=== PATIENT | male | born 1990 | race Caucasian/White ===

== ENCOUNTER 2017-10-10 03:05 | Emergency (ER) | payer MEDICAID ==
[~2017-10-10 03:05] MED LIST: HYDR-4309 PO; PROM-110 PO
--- NOTE | 2017-10-10 03:15 | ER Report ---
History and Physical Time Seen By MD: 03:15 Hx. of Stated Complaint: COUGH, SOB, CAN'T SLEEP HPI/ROS CHIEF COMPLAINT: Harsh cough 3 days HISTORY OF PRESENT ILLNESS: 27-year-old male presents to the ER with difficulty sleeping secondary to severe cough. He has a bronchitic repetitive cough which causes coughing fits. He shouldn't notes a history of reactive airways disease and allergies. Patient notes recent URI symptoms. He's had no change in color of his sputum. He's had no fevers. He denies chest pain or leg swelling. Patient was seen several months back and diagnosed with influenza REVIEW OF SYSTEMS: Respiratory: As above Cardiovascular: No chest pain, no palpitations. Gastrointestinal: No vomiting, no abdominal pain. Musculoskeletal: No back pain. Allergies: Coded Allergies: No Known Drug Allergies (Unverified , 10/10/17) Home Meds Active Scripts Hydrocodone Bit/Acetaminophen (NORCO 5-325 TABLET) 1 Each Tablet, 1 EACH PO Q4H Y for pain or cough suppression, #12 TAB Prov:GANESH ANN DO 10/10/17 Prednisone (PREDNISONE) 20 Mg Tablet, 20 MG PO QDAY for reduce lung inflammation , #9 2 by mouth daily 3 days then 1 by mouth daily 3 days Prov:GANESH ANN DO 10/10/17 Discontinued Scripts Promethazine Hcl (PROMETHAZINE HCL) 25 Mg Tablet, 25 MG PO Q4H Y for NAUSEA/ VOMITING, #15 TAB Prov:GANESH ANN DO 04/04/16 Hydrocodone Bit/Acetaminophen (NORCO 5-325 TABLET) 1 Each Tablet, 1 EACH PO Q4H Y for pain or cough suppression, #15 TAB Prov:GANESH ANN DO 04/04/16 Reviewed Nurses Notes: Yes Old Medical Records Reviewed: Yes Hx Substance Use Disorder: No Hx Alcohol Use: No Constitutional Vital Sign - Last 24 Hours 10/10/17 10/10/17 10/10/17 10/10/17 03:05 03:11 03:11 03:20 Temp 99.1 Pulse ??? 68 61 Resp 16 B/P (MAP) 113/80 (91) 113/80 Pulse Ox 95 93 O2 Delivery Room Air 10/10/17 10/10/17 10/10/17 10/10/17 03:30 03:34 03:35 03:35 Pulse 64 71 94 Resp 16 16 B/P (MAP) 116/83 (94) Pulse Ox 94 10/10/17 10/10/17 10/10/17 10/10/17 03:50 04:00 04:05 04:20 Pulse 86 104 77 B/P (MAP) 123/80 (94) Pulse Ox 94 92 93 10/10/17 10/10/17 04:25 04:30 Pulse 85 B/P (MAP) 119/80 (93) Pulse Ox 95 Physical Exam Vital signs stable, afebrile, pulse ox normal General Appearance: The patient is alert, has no immediate need for airway protection and no current signs of toxicity. Mild distress, skin warm, dry, pink HEENT: Pupils equal and round no injection. Oropharynx with redness, no exudate , mucous membranes are moist. Respiratory: Chest is non tender, lungs are clear to auscultation. Faint expiratory wheezing, some rhonchi noted. No Rales Cardiac: regular rate and rhythm Gastrointestinal: Abdomen is soft and non tender, no masses, bowel sounds normal. Musculoskeletal: Neck: Neck is supple and non tender. No lymphadenopathy Extremities have full range of motion and are non tender. No edema, no calf tenderness Skin: No rashes or lesions. DIFFERENTIAL DIAGNOSIS: After history and physical exam differential diagnosis was considered for shortness of breath including but not limited to pulmonary infectious process, COPD, asthma, pulmonary embolus and congestive heart failure. Medical Decision Making EKG/Imaging EKG Interpretation 12 lead EK Rhythm: normal sinus rhythm with sinus arrhythmia [place]: normal QRS: normal ST segments: normal, no evidence of ischemia or dysrhythmia Imaging X-ray: Two-view chest x-ray was obtained. I viewed the images myself on the PACS system. My interpretation of the images is: No infiltrate, no effusion, normal mediastinum. The radiologist interpretation had no clinically significant variation from this interpretation. ED Course/Re-evaluation ED Course Patient was admitted to an examination room. H&P was done. The differential diagnoses was considered. On clinical examination. Patient has a bronchitic cough. It's harsh and croup sounding in nature. Patient denies exposure to chemicals or dust. Patient's EKG is unremarkable for evidence of ischemia or heart strain. Chest x-ray shows no obvious infiltrate. Patient was treated with albuterol nebulizer treatment with lidocaine added to it. He was treated orally with prednisone. He is dispensed a albuterol inhaler. Patient also given Phenergan, and hydrocodone prescriptions to control his cough. Patient advised to follow-up with primary care if unimproved in 3-5 days. Decision to Disposition Date: Oct 10, 2017 Decision to Disposition Time: 03:48 Depart Departure Latest Vital Signs Vital Signs Date Time Temp Pulse Resp B/P (MAP) Pulse Ox O2 Delivery O2 Flow Rate FiO2 10/10/17 04:30 119/80 (93) 10/10/17 04:25 85 95 10/10/17 03:35 16 10/10/17 03:11 99.1 Room Air Impression: Primary Impression: Cough Additional Impressions: Chest pain Bronchospasm Condition: Improved Disposition: HOME OR SELF-CARE Referrals: CARIE LEW MD New Scripts Hydrocodone Bit/Acetaminophen (NORCO 5-325 TABLET) 1 Each Tablet 1 EACH PO Q4H Y for pain or cough suppression, #12 TAB Prov: GANESH ANN DO 10/10/17 Prednisone (PREDNISONE) 20 Mg Tablet 20 MG PO QDAY for reduce lung inflammation, #9 2 by mouth daily 3 days then 1 by mouth daily 3 days Prov: GANESH ANN DO 10/10/17 Patient Instructions: Acute Cough (ED), Bronchospasm (ED), Chest Wall Pain (ED) Additional Instructions: Follow-up with primary care if unimproved in 3-5 days. Problem Qualifiers Additional Impressions: Chest pain Chest pain type: chest pain on breathing Qualified Codes: R07.1 - Chest pain on breathing GANESH ANN DO Oct 10, 2017 03:15
[2017-10-10] MEDS ORDERED: predniSONE 20 MG TAB PO ONE (03:20)
[2017-10-10] MEDS ORDERED: ALBUTEROL 2.5 MG/3 ML NEB NEB ONE (03:20)
--- NOTE | 2017-10-10 03:38 | EKG ---
FACILITY: [facility] - [place] PATIENT NAME: YEYO HOYOS : [id number] MR: [id number] V: [id number] EXAM DATE: ORDERING PHYSICIAN: GANESH ANN TECHNOLOGIST: KAM Test Reason : CHEST PAIN Blood Pressure : / mmHG Vent. Rate : 060 BPM Atrial Rate : 060 BPM P-R Int : 150 ms QRS Dur : 112 ms QT Int : 408 ms P-R-T Axes : 064 052 046 degrees QTc Int : 408 ms Sinus arrhythmia Nonspecific interventricular conduction delay Hint of delta wave in II, III, AVF Confirmed by BÁRBARA WHITE ([id number]) on 10/10/2017 5:55:25 AM Referred By: Confirmed By:BÁRBARA WHITE
[2017-10-10] MEDS ORDERED: PRED20TA6 PO (03:56)
[2017-10-10] MEDS ORDERED: HYDR-4309 PO (03:56)
[2017-10-10] MEDS ORDERED: ALBUTEROL SULFATE 90 MCG/ACT 8.5 GM HNH INH PRN (04:00)
--- NOTE | 2017-10-10 04:02 | RADIOLOGY IMAGING REPORT ---
FACILITY: [facility] - [place] PATIENT NAME: Marbin Layton : 1990 MR: [id number] V: [id number] EXAM DATE: ORDERING PHYSICIAN: GANESH ANN TECHNOLOGIST: Location: [facility] Patient: Marbin Layton : 1990 Visit/Account:[id number] Date of Sevice: 10/10/2017 TWO VIEW CHEST 10/10/2017 3:47 AM. INDICATION: Cough, dyspnea. COMPARISON: 09/02/2016. FINDINGS: Lungs are well-expanded. No focal consolidation. No pneumothorax or pleural effusion. Pu lmonary vasculature is unremarkable. Heart size is normal. IMPRESSION: Normal. Report Dictated By: Drew Austin MD at 10/10/2017 3:56 AM Report E-Signed By: Drew Austin MD at 10/10/2017 3:58 AM WSN:[id number]
[2017-10-10] MEDS ORDERED: ACET/HYDROC 5/325MG TH ER ONLY 2 TAB/BOTTLE PO ONE (04:10)
[2017-10-10] MEDS ORDERED: ALBUTEROL 8 GM INHALER INH ONE (04:23)
[2017-10-10 04:30] VITALS: BP 119/80
== END 2017-10-10 04:34 | disposition home or self-care (01) ==
LOC: ER 03:32
DX: J98.01 Acute bronchospasm (principal); R05 Cough; R07.9 Chest pain, unspecified
CPT/HCPCS: 93005; 94640; 99283; J3535; J7512; J7613

== ENCOUNTER 2018-09-17 18:38 | Emergency (ER) | payer OTHER, MEDICAID ==
[~2018-09-17 18:38] MED LIST changes: -HYDR-4309 PO; +HYDR-653 PO; +PRED20TA6 PO
[2018-09-17 18:42] VITALS: BP 123/80
--- NOTE | 2018-09-17 19:00 | ER Report ---
History and Physical Time Seen By MD: 18:43 Hx. of Stated Complaint: LACERATED LIP, HIT IN FACE WITH BOARD HPI/ROS CHIEF COMPLAINT: Lip laceration HISTORY OF PRESENT ILLNESS: 28-year-old male was removing a board that was stuck down with a nail. He was pulling quite hard on it when it broke loose board hit him in the mouth. He sustained a laceration to the internal lower lip, approximately 1.5 cm in length. She notes no loose teeth. He notes no jaw pain. He notes no headache, nausea, vomiting or visual changes. Patient's tetanus status is up-to-date. Patient's last tetanus shot was one year ago. Allergies: Coded Allergies: No Known Drug Allergies (Unverified , 10/10/17) Home Meds Active Scripts Hydrocodone Bit/Acetaminophen (NORCO 5-325 TABLET) 1 Each Tablet, 1 EACH PO Q4H PRN for pain or cough suppression, #12 TAB Prov:GANESH ANN DO 10/10/17 Prednisone (PREDNISONE) 20 Mg Tablet, 20 MG PO QDAY for reduce lung inflammation, #9 2 by mouth daily 3 days then 1 by mouth daily 3 days Prov:GANESH ANN DO 10/10/17 Hx Substance Use Disorder: No Hx Alcohol Use: No Constitutional Vital Sign - Last 24 Hours 09/17/18 09/17/18 18:42 18:53 Temp 98.1 Pulse 72 76 Resp 16 B/P (MAP) 123/80 Pulse Ox 94 90 O2 Delivery Room Air Physical Exam General appearance: Alert no distress. HEENT: TMJs nontender, teeth and jaw are nontender, visualization of the buccal surface of the internal lower lip reveals a vertical 1.5, 70 laceration a little over to the left side. Teeth are intact on palpation. Respiratory: Chest is non tender, lungs are clear to auscultation. Cardiac: Regular rate and rhythm DIFFERENTIAL DIAGNOSIS: After history and physical exam differential diagnosis was considered for lip laceration, lip contusion, lip foreign body, dental injury, mandible fracture Medical Decision Making ED Course/Re-evaluation ED Course Patient was admitted to an examination room. H&P was done. The differential diagnoses was considered. Patient sustained an internal laceration to his lower lip. We'll require several sutures. It was repaired as noted below. Patient's tetanus status is verified is up-to-date, less than 1 year ago. Patient's advised ibuprofen for pain relief and ice packs to the affected area. Procedure: Laceration repair. Verbal consent was obtained from the patient. The 1.5 cm laceration on the internal buccal surface of the left lower lip was anesthetized in the usual fashion. The wound was scrubbed, draped and explored to its base with a gloved finger. There were no deep structures involved. The wound was repaired with 4- 0 Vicryl 3 sutures. The wound repair was simple. The procedure was performed by myself. Wound care was discussed Decision to Disposition Date: Sep 17, 2018 Decision to Disposition Time: 18:58 Depart Departure Latest Vital Signs Vital Signs Date Time Temp Pulse Resp B/P (MAP) Pulse Ox O2 Delivery O2 Flow Rate FiO2 09/17/18 18:53 76 90 09/17/18 18:42 98.1 16 123/80 Room Air Impression: Primary Impression: Lip laceration Condition: Improved Disposition: HOME OR SELF-CARE Patient Instructions: Laceration (ED) Additional Instructions: Rinse mouth with peroxide and water mixed 50-50 once or twice daily for several days Watch for signs of infection Stitches should fall out in approximately 1-2 weeks Take ibuprofen as needed for pain Problem Qualifiers Primary Impression: Lip laceration Encounter type: initial encounter Qualified Codes: S01.511A - Laceration without foreign body of lip, initial encounter GANESH ANN DO Sep 17, 2018 19:00
== END 2018-09-17 19:06 | disposition home or self-care (01) ==
LOC: ER 18:41
DX: S01.511A Laceration without foreign body of lip, initial encounter (principal)
CPT/HCPCS: 99282